=== PATIENT | female | born 1995 | race Caucasian/White ===

== ENCOUNTER 2024-11-15 08:14 | Day surgery (SDC) | payer BC ==
[2024-11-14 14:22] LABS: MEAN PLATELET VOLUME 7.9 FL (7.4-10.4); PRE OP HEMATOCRIT 32.0 % (35.0-45.0); PRE OP PLATELET COUNT 284 X10'3 (140-440); PRE OP WHITE BLOOD COUNT 8.3 10'3 (4.8-10.8); RED CELL DISTRIBUTION WIDTH 13.1 % (11.5-14.5)
[2024-11-14 14:24] LABS: PRE OP HEMOGLOBIN 10.9 g/dL (12.0-16.0)
[2024-11-14 14:38] LABS: CREATININE 0.46 MG/DL (0.40-0.90); PRE OP ALT 22 U/L (30-65); PRE OP ANION GAP 10 (8-16); PRE OP AST 14 U/L (10-37); PRE OP BILIRUB, TOTAL 0.2 MG/DL (0.0-1.0); PRE OP GLUCOSE 87 MG/DL (70-104); PRE OP POTASSIUM 3.9 MMOL/L (3.4-5.1); PRE OP SODIUM 138 MMOL/L (135-145); TOTAL CARBON DIOXIDE 25.0 MMOL/L (24-32); eGFR > 90 ML/MIN
[~2024-11-15] VITALS: Ht 165.1 cm; Wt 74.8 kg
[2024-11-15] VITALS (12 sets, daily range): BP systolic 104–121; BP diastolic 54–69; PULSE 54–86; RESP 12–21; TEMP 98.7; O2SAT 97–100
[~2024-11-15 08:14] MED LIST: LETR2.5T7 PO; PRENATAL VIT; PROG100C11 PO; VIT D; [UNRECOGNIZED DRUG - OTHER]; ceFOXitin 2GM-NS 100mL ADDvant 100 ML IV ONE
[2024-11-15] MEDS: ringers solution, lacted 1,000 ML IV SCH (08:54)
[2024-11-15] MEDS ORDERED: midazolam 1 mg/ML 2ml injection ONE ×2 (09:58→10:10)
[2024-11-15] MEDS ORDERED: fentaNYL/PF 50MCG/1 ML 2ML syringe ONE (10:10)
[2024-11-15] MEDS ORDERED: propofol inj 20 ML IV ONE (10:12)
[2024-11-15] MEDS ORDERED: methylergonovine maleate 0.2mg/ml amp ONE (10:29)
[2024-11-15] MEDS ORDERED: ondansetron/PF 4mg/2ml inj ONE (10:37)
[2024-11-15] MEDS ORDERED: dexamethasone sod phosphate 4mg/ml inj. ONE (10:37)
[2024-11-15] MEDS ORDERED: hydrALAZINE 20mg/ml inj. IV PRN (10:50)
[2024-11-15] MEDS ORDERED: HYDROmorphone/PF 0.2 MG/ML SYRINGE IV PRN ×2 (10:50)
[2024-11-15] MEDS ORDERED: ringers solution, lacted 1,000 ML IV SCH (10:50)
[2024-11-15] MEDS ORDERED: ondansetron/PF 4mg/2ml inj IV PRN (10:50)
[2024-11-15] MEDS ORDERED: labetalol 20mg/4ml (5mg/ml) syringe IV PRN (10:50)
[2024-11-15] MEDS ORDERED: morphine 4 MG/ML inj SYRINge IV PRN ×2 (10:50→11:00)
[2024-11-15] MEDS ORDERED: acetaminophen 1,000mg/100ml IV 100 ML IV PRN (10:50)
--- NOTE | 2024-11-15 11:17 | OPERATIVE REPORT ---
DATE OF SURGERY: 11/15/2024 DICTATING PHYSICIAN: Burt Alfredo MD PREOPERATIVE DIAGNOSIS: Missed . POSTOPERATIVE DIAGNOSIS: Incomplete . PROCEDURE: Dilatation and curettage. SURGEON: Burt Alfredo MD MACHINE OPERATOR SLITTER TECHNICIAN: None. ANESTHESIOLOGIST: Dr. Plata. ANESTHESIA: General. FINDINGS: Small amount of products of conception at the endocervical canal followed by a larger amount of products of conception within the endometrium. ESTIMATED BLOOD LOSS: 30 mL. COMPLICATIONS: None. INDICATIONS: The patient is a 28-year-old female who had been followed in my office through serial ultrasounds, had initially a viable of approximately 6 weeks' gestation showing a heartbeat at her first ultrasound. The patient subsequently developed some bleeding. A followup ultrasound showed a demise. The patient was managed expectantly; however, a followup ultrasound a week later again showed demise with the retained gestational sac consistent with a missed . The patient agreed to the above procedures. TECHNIQUE: The patient was taken to the OR where general anesthesia was found to be adequate. She was placed in a high dorsal lithotomy position. She was prepped and draped in the usual sterile fashion. A weighted speculum was placed at the posterior fornix of the vagina. The cervix was visualized and there was a small amount of tissue noted within the endocervical canal, which was extracted with a ring forceps. A suction cannula was then introduced and a large amount of products of conception were removed. Sharp curettage was then performed throughout the endometrium with a small amount of tissue and blood clot obtained and the procedure was terminated. Adequate hemostasis was noted. All instruments were removed and no significant bleeding was noted. IM Methergine was administered. Sponge, lap, instrument, and needle counts were correct. Complications were none. PATHOLOGY: The initial tissue specimen that was extracted from the endocervical canal as well as endometrial curettings were sent to Pathology. What appeared to be products of conception were sent for Irma chromosomal analysis. DISPOSITION: The patient was taken to the recovery room in stable condition. Burt Alfredo MD TID: [id number] RECEIPT: [id number] TARUN/ADOLFO
[2024-11-15] MEDS: HYDROcodone/acetaminophen 5mg/325mg tablet PO ONE (11:50)
== END 2024-11-15 12:27 | disposition home or self-care (01) ==
LOC: PAS 08:14
PROVIDERS: ATTEND Obstetrics & Gynecology Obstetrics
DX: O03.4 Incomplete spontaneous abortion without complication (principal); Z79.899 Other long term (current) drug therapy; Z98.890 Other specified postprocedural states
CPT/HCPCS: 36415; 80053; 82948; 85025; 86885; 86900; 86901; A4618; A6258; A7000; J0694; J1100; J2210; J2250; J2405; J2704; J3010; J7120